=== PATIENT | female | born 1955 | race Caucasian/White ===

== ENCOUNTER 2019-03-02 14:22 | Inpatient (IN) | payer OTHER ==
[~2019-03-02] VITALS: Ht 175.3 cm; Wt 78.0 kg
[~2019-03-02 14:22] MED LIST: FAMO-79 PO; HYDR25TA6 PO; MELO7.5T31 PO; PRED10TA14 PO; PRED20TA PO; PRED5TAB PO; SUCR1TAB33 PO
[2019-03-02] MEDS ORDERED: morphine SULFATE 10 MG/ML, 1ML IVPush PRN (17:30)
[2019-03-02] MEDS ORDERED: ONDANSETRON 2MG/ML, 2ML IVPush PRN (17:30)
[2019-03-02] MEDS ORDERED: TPN PER PHARMACY MC PRN (17:30)
[2019-03-02] MEDS ORDERED: ACETAMINOPHEN 325 MG TABLET PO PRN (17:30)
[2019-03-02 18:12] LABS: MEAN CORPUSCULAR HEMOGLOBIN 29.5 pg (27.0-34.8); MEAN CORPUSCULAR HGB CONC 33.4 g/dL (32.4-35.8); MEAN CORPUSCULAR VOLUME 88.5 fL (80-100); MEAN PLATELET VOLUME 9.5 fL (7.4-10.4); PLATELET COUNT 453 x10^3/uL (130-400); RED BLOOD COUNT 4.26 x10^6/uL (3.82-5.3); RED CELL DISTRIBUTION WIDTH 14.5 % (9.6-15.2)
[2019-03-02 18:14] LABS: MD YES
[2019-03-02 18:24] LABS: ALBUMIN 2.2 g/dL (3.4-5.0); ANION GAP 10 mmol/L (5-15); CALCIUM 9.3 mg/dL (8.5-10.1); CHLORIDE 88 mmol/L (98-107)
[2019-03-02 18:28] LABS: ALANINE AMINOTRANSFERASE 445 U/L (12-78); ALKALINE PHOSPHATASE 464 U/L (45-117); BILIRUBIN,TOTAL 5.6 mg/dL (0.2-1.0); CREATININE 1.53 mg/dL (0.55-1.02); TOTAL PROTEIN 6.8 g/dL (6.4-8.2)
[2019-03-02] MEDS: LACTATED RINGERS 1,000 ML IV SCH (18:48)
[2019-03-02 18:57] LABS: BAND#(MANUAL) 0.19 x10^3/uL; BANDS%(MANUAL) 1 % (0-7); LYMPHS% (MANUAL) 7 % (22-44); MONOS#(MANUAL) 1.11 x10^3/uL (0.3-2.7); MONOS% (MANUAL) 6 % (2-9); SEG#(MANUAL) 15.91 x10^3/uL (1.8-6.8); SEGS% (MANUAL) 86 % (42-75)
[2019-03-02 18:58] LABS: <PLATELET ESTIMATE> INCREASED; <RBC MORPHOLOGY> NORMAL
[2019-03-02 18:59] LABS: <PLT MORPHOLOGY> NORMAL PLT MORPH
[2019-03-02 20:02] VITALS: BP 118/84
[2019-03-02 22:24] LABS: MICROSCOPIC INDICATED
[2019-03-02 22:25] LABS: CULTURE INDICATED? YES
[2019-03-03] MEDS: CEFTRIAXONE PMX 1GM/50ML 50 ML IV SCH ×2 (00:11→23:34)
[2019-03-03 00:56] VITALS: BP 128/86
[2019-03-03] MEDS: LACTATED RINGERS 1,000 ML IV SCH (02:16)
[2019-03-03 04:42] LABS: ALANINE AMINOTRANSFERASE 368 U/L (12-78); ANION GAP 8 mmol/L (5-15); CALCIUM 9.3 mg/dL (8.5-10.1); CHLORIDE 91 mmol/L (98-107); CREATININE 1.45 mg/dL (0.55-1.02)
[2019-03-03 04:49] LABS: ALKALINE PHOSPHATASE 404 U/L (45-117); BILIRUBIN,TOTAL 4.7 mg/dL (0.2-1.0); PREALBUMIN 12.1 mg/dL (20.0-40.0); TOTAL PROTEIN 6.1 g/dL (6.4-8.2); TRIGLYCERIDES 177 mg/dL (50-200)
[2019-03-03] MEDS ORDERED: SODIUM CHLORIDE 0.9% 1,000 ML IV SCH ×2 (06:30→13:30)
[2019-03-03] MEDS: PANTOPRAZOLE 40 MG IV IVPush SCH (08:14)
[2019-03-03 08:55] VITALS: BP 125/71
[2019-03-03] MEDS ORDERED: PLEASE ENTER HEIGHT MC SCH (10:00)
[2019-03-03 10:26] VITALS: BP 130/90
[2019-03-03] MEDS ORDERED: NS + 40MEQ KCL 1,000 ML IV SCH (13:30)
[2019-03-03] MEDS: FILTER, DISP 1.2 MICRON FOR TPN/PVN IV PRN (16:41)
[2019-03-03] MEDS ORDERED: FAT EMUL IV SCH ×2 (17:00)
[2019-03-03] MEDS ORDERED: DEXTROSE 10% 500 ML IV PRN (17:00)
[2019-03-03] MEDS ORDERED: DEXTROSE 50%, 50ML SYRINGE IVPush PRN (17:00)
[2019-03-03] MEDS ORDERED: DEXTROSE 70% IV SCH ×2 (17:00)
[2019-03-03] MEDS ORDERED: [UNRECOGNIZED DRUG - OTHER] IV SCH (17:00)
[2019-03-03] MEDS ORDERED: [UNRECOGNIZED DRUG - OTHER] IV SCH (17:00)
[2019-03-03] MEDS ORDERED: AMINO ACID 10% IV SCH ×2 (17:00)
[2019-03-03] MEDS ORDERED: SMOF TPN IV SCH ×2 (17:00)
[2019-03-03 17:21] VITALS: BP 128/86
[2019-03-03 19:37] VITALS: BP 130/81
[2019-03-03] MEDS: SODIUM CHLORIDE 0.9% 1,000 ML IV SCH (19:55)
[2019-03-03] MEDS: INSULIN REGULAR MEDIUM DOSE Q6H X 48HRS SQ-INSULIN SCH (23:58)
[2019-03-04] VITALS: BP 124/86
[2019-03-04] MEDS: INSULIN REGULAR MEDIUM DOSE Q6H X 48HRS SQ-INSULIN SCH ×4 (05:37→23:24)
[2019-03-04 05:58] LABS: BASOPHILS # (AUTO) 0.03 x10^3/uL (0-0.1); BASOPHILS % (AUTO) 0 % (0-1); EOSINOPHILS # (AUTO) 0.26 x10^3/uL (0-0.4); EOSINOPHILS % (AUTO) 2 % (1-7); LYMPHOCYTES # (AUTO) 0.93 x10^3/uL (1-3.4); LYMPHOCYTES % (AUTO) 7 % (22-44); MD NO; MEAN CORPUSCULAR HEMOGLOBIN 29.1 pg (27.0-34.8); MEAN CORPUSCULAR HGB CONC 32.4 g/dL (32.4-35.8); MEAN CORPUSCULAR VOLUME 89.9 fL (80-100); MEAN PLATELET VOLUME 9.9 fL (7.4-10.4); MONOCYTES # (AUTO) 0.86 x10^3/uL (0.2-0.8); MONOCYTES % (AUTO) 6 % (2-9); NEUTROPHILS # (AUTO) 11.94 x10^3/uL (1.8-6.8); NEUTROPHILS % (AUTO) 85 % (42-75); PLATELET COUNT 342 x10^3/uL (130-400); RED CELL DISTRIBUTION WIDTH 14.6 % (9.6-15.2)
[2019-03-04 06:05] LABS: ALBUMIN 1.9 g/dL (3.4-5.0); ANION GAP 8 mmol/L (5-15); CALCIUM 8.7 mg/dL (8.5-10.1); CHLORIDE 96 mmol/L (98-107)
[2019-03-04 06:09] LABS: ALANINE AMINOTRANSFERASE 288 U/L (12-78); ALKALINE PHOSPHATASE 319 U/L (45-117); BILIRUBIN,TOTAL 3.6 mg/dL (0.2-1.0); CREATININE 1.48 mg/dL (0.55-1.02); TOTAL PROTEIN 5.9 g/dL (6.4-8.2)
[2019-03-04 07:21] VITALS: BP 118/82
[2019-03-04] MEDS: PANTOPRAZOLE 40 MG IV IVPush SCH (09:28)
[2019-03-04] MEDS ORDERED: FENTANYL PF 100 MCG/2ML ONE (12:54)
[2019-03-04] MEDS ORDERED: MIDAZOLAM 1 MG/ML, 2ML ONE (12:54)
[2019-03-04] MEDS ORDERED: LIDOCAINE GEL 2%, 5ML ONE (12:56)
[2019-03-04] MEDS ORDERED: hydrALAzine 20 MG/ML, 1ML IV PRN (13:00)
[2019-03-04] MEDS ORDERED: MEPERIDINE/PF 25MG/ML,1ML IVPush PRN (13:00)
[2019-03-04] MEDS ORDERED: PROMETHAZINE 25 MG/ML, 1ML IV PRN (13:00)
[2019-03-04] MEDS ORDERED: OXYcodone 5 MG/5 ML ORAL.SOL UDC PO PRN (13:00)
[2019-03-04] MEDS ORDERED: MIDAZOLAM 1 MG/ML, 2ML IV PRN (13:00)
[2019-03-04] MEDS ORDERED: FENTANYL PF 100 MCG/2ML IV PRN (13:00)
[2019-03-04] MEDS ORDERED: ALBUTEROL/IPRATROPIUM 2.5MG/0.5MG, 3 ML NPPB PRN (13:00)
[2019-03-04] MEDS ORDERED: METOPROLOL 1 MG/ML, 5ML IV PRN (13:00)
[2019-03-04] MEDS ORDERED: SUCCINYLCHOLINE 20 MG/ML, 10ML ONE (13:22)
[2019-03-04] MEDS ORDERED: PHENYLEPHRINE 10 MG/ML ONE (13:22)
[2019-03-04] MEDS ORDERED: ROCURONIUM 10 MG/ML,10ML ONE (13:22)
[2019-03-04] MEDS ORDERED: ONDANSETRON 2MG/ML, 2ML ONE (13:52)
[2019-03-04] MEDS ORDERED: DEXAMETHASONE 4 MG/ML, 1ML ONE (13:52)
[2019-03-04] MEDS ORDERED: PROPOFOL 10 MG/ML, 20ML ONE (13:52)
[2019-03-04] MEDS ORDERED: VANCOMYCIN PER PHARMACY MC PRN (15:00)
[2019-03-04] MEDS ORDERED: PHARMACOKINETIC MONITORING MC PRN (15:30)
[2019-03-04] MEDS ORDERED: PHARMACOKINETIC CONSULTATION MC ONE ×2 (15:30)
[2019-03-04] MEDS: VANCOMYCIN 1,300 MG in SODIUM CHLORIDE 0.9% 250 ML IV SCH (16:32)
[2019-03-04] MEDS ORDERED: [UNRECOGNIZED DRUG - OTHER] IV SCH (17:00)
[2019-03-04] MEDS ORDERED: FAT EMUL IV SCH ×2 (17:00)
[2019-03-04] MEDS ORDERED: SMOF TPN IV SCH ×2 (17:00)
[2019-03-04] MEDS ORDERED: AMINO ACID 10% IV SCH ×2 (17:00)
[2019-03-04] MEDS ORDERED: [UNRECOGNIZED DRUG - OTHER] IV SCH (17:00)
[2019-03-04] MEDS ORDERED: DEXTROSE 70% IV SCH ×2 (17:00)
[2019-03-04 17:01] VITALS: BP 117/84
[2019-03-04] MEDS: FILTER, DISP 1.2 MICRON FOR TPN/PVN IV PRN (17:41)
[2019-03-04 19:44] VITALS: BP 131/87
[2019-03-04] MEDS: CEFTRIAXONE PMX 1GM/50ML 50 ML IV SCH (23:24)
[2019-03-05 03:09] VITALS: BP 124/82
[2019-03-05 04:35] LABS: INTERNATIONAL NORMALIZED RATIO 1.01 (0.93-1.1); PROTHROMBIN TIME 10.6 Seconds (9.6-11.5)
[2019-03-05 04:40] LABS: ALBUMIN 1.9 g/dL (3.4-5.0); ANION GAP 6 mmol/L (5-15); CALCIUM 8.6 mg/dL (8.5-10.1); CHLORIDE 106 mmol/L (98-107)
[2019-03-05 04:44] LABS: ALANINE AMINOTRANSFERASE 305 U/L (12-78); ALKALINE PHOSPHATASE 302 U/L (45-117); BILIRUBIN,TOTAL 3.3 mg/dL (0.2-1.0); TOTAL PROTEIN 5.7 g/dL (6.4-8.2)
[2019-03-05] MEDS: INSULIN REGULAR MEDIUM DOSE Q6H X 48HRS SQ-INSULIN SCH ×3 (06:23→17:00)
[2019-03-05 07:17] VITALS: BP 125/81
[2019-03-05] MEDS: PANTOPRAZOLE 40 MG IV IVPush SCH (08:41)
[2019-03-05] MEDS: SODIUM CHLORIDE 0.9% 1,000 ML IV SCH (11:22)
[2019-03-05] MEDS ORDERED: EPHEDRINE 50 MG/ML, 1ML ONE (11:47)
[2019-03-05 13:18] VITALS: BP 119/73
[2019-03-05] MEDS ORDERED: MIDAZOLAM 1 MG/ML, 2ML ONE (15:38)
[2019-03-05] MEDS ORDERED: FENTANYL PF 100 MCG/2ML ONE ×2 (15:38→15:57)
[2019-03-05] MEDS ORDERED: KETOROLAC 30 MG/1 ML ONE (15:44)
[2019-03-05] MEDS ORDERED: NEOSTIGMINE 1 MG/ML, 10ML ONE (15:44)
[2019-03-05] MEDS ORDERED: CEFOTETAN 2 GM ONE (15:44)
[2019-03-05] MEDS ORDERED: GLYCOPYRROLATE 0.2MG/1ML, 5ML ONE (15:44)
[2019-03-05] MEDS ORDERED: ONDANSETRON 2MG/ML, 2ML ONE (15:58)
[2019-03-05] MEDS ORDERED: SUCCINYLCHOLINE 20 MG/ML, 10ML ONE (16:21)
[2019-03-05] MEDS ORDERED: LIDOCAINE-MPF 2% ,5ML ONE (16:21)
[2019-03-05] MEDS ORDERED: PROPOFOL 10 MG/ML, 20ML ONE (16:21)
[2019-03-05] MEDS ORDERED: DEXAMETHASONE 4 MG/ML, 1ML ONE ×2 (16:23)
[2019-03-05] MEDS ORDERED: CEFAZOLIN 1,000 MG ONE (16:24)
[2019-03-05] MEDS ORDERED: SODIUM CHLORIDE 0.9% PF 10ML ONE (16:24)
[2019-03-05] MEDS ORDERED: HYDROcodone/APAP 7.5-325MG/15ML UDC PO PRN (16:30)
[2019-03-05] MEDS ORDERED: ONDANSETRON 2MG/ML, 2ML IV PRN (16:30)
[2019-03-05] MEDS ORDERED: hydrALAzine 20 MG/ML, 1ML IV PRN (16:30)
[2019-03-05] MEDS ORDERED: MEPERIDINE/PF 25MG/ML,1ML IVPush PRN (16:30)
[2019-03-05] MEDS ORDERED: LABETALOL 5MG/ML, 20ML IV PRN (16:30)
[2019-03-05] MEDS ORDERED: PROMETHAZINE 25 MG/ML, 1ML IV PRN (16:30)
[2019-03-05] MEDS ORDERED: EPHEDRINE 50 MG/ML, 1ML IVPush PRN (16:30)
[2019-03-05] MEDS ORDERED: FENTANYL PF 100 MCG/2ML IV PRN (16:30)
[2019-03-05] MEDS ORDERED: FAT EMUL IV SCH (17:00)
[2019-03-05] MEDS ORDERED: SMOF TPN IV SCH (17:00)
[2019-03-05] MEDS ORDERED: DEXTROSE 70% IV SCH (17:00)
[2019-03-05] MEDS ORDERED: [UNRECOGNIZED DRUG - OTHER] IV SCH (17:00)
[2019-03-05] MEDS ORDERED: AMINO ACID 10% IV SCH (17:00)
[2019-03-05] MEDS ORDERED: HYDROmorphone 2 MG/ML, 1ML ONE (17:22)
[2019-03-05] MEDS: HYDROmorphone 2 MG/ML, 1ML IVPush PRN ×5 (17:25→21:04)
[2019-03-05] MEDS: FILTER, DISP 1.2 MICRON FOR TPN/PVN IV PRN (18:41)
[2019-03-05 19:18] VITALS: BP 125/88
[2019-03-05] MEDS ORDERED: POTASSIUM CHLORIDE 20 MEQ in D5%-0.45% NACL 1,000 ML IV SCH (20:30)
[2019-03-05] MEDS: CEFOTETAN PMX 1GM/50ML 50 ML IVPB SCH (22:33)
[2019-03-05] MEDS: D5%-0.45% NACL 1,000 ML IV SCH (22:34)
[2019-03-05] MEDS: VANCOMYCIN 1,300 MG in SODIUM CHLORIDE 0.9% 250 ML IV SCH (23:08)
[2019-03-06] MEDS ORDERED: HYDROmorphone 1 MG/ML, 1ML VIAL ONE ×2 (01:08→04:56)
[2019-03-06] MEDS: HYDROmorphone 2 MG/ML, 1ML IVPush PRN ×7 (01:12→23:22)
[2019-03-06] MEDS: CEFTRIAXONE PMX 1GM/50ML 50 ML IV SCH (01:19)
[2019-03-06 02:37] VITALS: BP 122/81
[2019-03-06 03:10] LABS: BASOPHILS # (AUTO) 0.01 x10^3/uL (0-0.1); BASOPHILS % (AUTO) 0 % (0-1); EOSINOPHILS # (AUTO) 0.01 x10^3/uL (0-0.4); EOSINOPHILS % (AUTO) 0 % (1-7); LYMPHOCYTES # (AUTO) 0.63 x10^3/uL (1-3.4); LYMPHOCYTES % (AUTO) 4 % (22-44); MD NO; MEAN CORPUSCULAR HEMOGLOBIN 28.7 pg (27.0-34.8); MEAN CORPUSCULAR VOLUME 89.7 fL (80-100); MEAN PLATELET VOLUME 9.6 fL (7.4-10.4); MONOCYTES # (AUTO) 0.74 x10^3/uL (0.2-0.8); MONOCYTES % (AUTO) 5 % (2-9); NEUTROPHILS # (AUTO) 13.99 x10^3/uL (1.8-6.8); NEUTROPHILS % (AUTO) 91 % (42-75); PLATELET COUNT 326 x10^3/uL (130-400); RED BLOOD COUNT 3.65 x10^6/uL (3.82-5.3); RED CELL DISTRIBUTION WIDTH 15.1 % (9.6-15.2)
[2019-03-06 03:23] LABS: ALANINE AMINOTRANSFERASE 346 U/L (12-78); ALBUMIN 1.8 g/dL (3.4-5.0); ANION GAP 5 mmol/L (5-15); CALCIUM 8.5 mg/dL (8.5-10.1); CHLORIDE 109 mmol/L (98-107); CREATININE 1.63 mg/dL (0.55-1.02)
[2019-03-06 03:26] LABS: ALKALINE PHOSPHATASE 342 U/L (45-117); BILIRUBIN,TOTAL 3.2 mg/dL (0.2-1.0); TOTAL PROTEIN 5.9 g/dL (6.4-8.2)
[2019-03-06] MEDS: PANTOPRAZOLE 40 MG IV IVPush SCH (07:42)
[2019-03-06] MEDS: ENOXAPARIN 40 MG/0.4 ML SQ SCH (08:00)
[2019-03-06 08:17] VITALS: BP 149/97
[2019-03-06] MEDS ORDERED: FENTANYL PF 100 MCG/2ML ONE (09:00)
[2019-03-06] MEDS ORDERED: FLUMAZENIL 0.1 MG/1 ML, 5ML ONE (09:00)
[2019-03-06] MEDS ORDERED: MIDAZOLAM 1 MG/ML, 5ML ONE (09:00)
[2019-03-06] MEDS: INSULIN REGULAR MEDIUM DOSE QDAY SQ-INSULIN SCH (09:00)
[2019-03-06] MEDS ORDERED: NALOXONE 1 MG/ML, 2ML ONE (09:00)
[2019-03-06] MEDS ORDERED: LIDOCAINE 1%, 10ML ONE (09:27)
[2019-03-06] MEDS ORDERED: MEPERIDINE/PF 50 MG/ML ONE (09:28)
[2019-03-06] MEDS ORDERED: DIPHENHYDRAMINE 50 MG/ML, 1ML ONE (09:40)
[2019-03-06 12:12] VITALS: BP 133/89
[2019-03-06] MEDS: CEFOTETAN PMX 1GM/50ML 50 ML IVPB SCH (12:46)
[2019-03-06] MEDS: VANCOMYCIN 1,300 MG in SODIUM CHLORIDE 0.9% 250 ML IV SCH (15:16)
[2019-03-06] MEDS ORDERED: AMINO ACID 10% IV SCH (17:00)
[2019-03-06] MEDS ORDERED: FAT EMUL IV SCH (17:00)
[2019-03-06] MEDS ORDERED: DEXTROSE 70% IV SCH (17:00)
[2019-03-06] MEDS ORDERED: [UNRECOGNIZED DRUG - OTHER] IV SCH (17:00)
[2019-03-06] MEDS ORDERED: SMOF TPN IV SCH (17:00)
[2019-03-06] MEDS: FILTER, DISP 1.2 MICRON FOR TPN/PVN IV PRN (17:52)
[2019-03-06 19:39] VITALS: BP 131/88
[2019-03-07] MEDS: CEFTRIAXONE PMX 1GM/50ML 50 ML IV SCH (01:18)
[2019-03-07 01:49] VITALS: BP 128/85
[2019-03-07] MEDS: HYDROmorphone 2 MG/ML, 1ML IVPush PRN ×4 (05:37→20:39)
[2019-03-07 06:01] LABS: ANION GAP 6 mmol/L (5-15); CALCIUM 8.4 mg/dL (8.5-10.1); CHLORIDE 106 mmol/L (98-107); CREATININE 1.36 mg/dL (0.55-1.02)
[2019-03-07 06:59] VITALS: BP 138/86
[2019-03-07] MEDS: PANTOPRAZOLE 40 MG IV IVPush SCH (08:11)
[2019-03-07] MEDS: ENOXAPARIN 40 MG/0.4 ML SQ SCH (08:11)
[2019-03-07 08:45] LABS: ALBUMIN 1.6 g/dL (3.4-5.0); ANION GAP 7 mmol/L (5-15); CALCIUM 8.4 mg/dL (8.5-10.1); CHLORIDE 107 mmol/L (98-107)
[2019-03-07] MEDS: INSULIN REGULAR MEDIUM DOSE QDAY SQ-INSULIN SCH (09:06)
[2019-03-07 09:10] LABS: % IRON SATURATION 13 % (20-55); ALANINE AMINOTRANSFERASE 326 U/L (12-78); ALKALINE PHOSPHATASE 499 U/L (45-117); BILIRUBIN, DIRECT 3.5 mg/dL (0.1-0.2); BILIRUBIN,INDIRECT 0.8 mg/dL (0.0-2.0); BILIRUBIN,TOTAL 4.3 mg/dL (0.2-1.0); CREATININE 1.38 mg/dL (0.55-1.02); IRON LEVEL 21 mcg/dL (50-170); TOTAL IRON BINDING CAPACITY 161 mcg/dL (250-450); TOTAL PROTEIN 5.5 g/dL (6.4-8.2)
[2019-03-07 12:25] VITALS: BP 130/84
[2019-03-07] MEDS: SMOF TPN IV SCH (16:52)
[2019-03-07] MEDS: [UNRECOGNIZED DRUG - OTHER] IV SCH (16:52)
[2019-03-07] MEDS: AMINO ACID 10% IV SCH (16:52)
[2019-03-07] MEDS: FILTER, DISP 1.2 MICRON FOR TPN/PVN IV PRN (16:52)
[2019-03-07] MEDS: FAT EMUL IV SCH (16:52)
[2019-03-07] MEDS: DEXTROSE 70% IV SCH (16:52)
[2019-03-07 20:33] VITALS: BP 129/91
[2019-03-08] MEDS: HYDROmorphone 2 MG/ML, 1ML IVPush PRN ×4 (01:43→20:34)
[2019-03-08 02:22] VITALS: BP 131/91
[2019-03-08] MEDS: D5%-0.45% NACL 1,000 ML IV SCH (04:26)
[2019-03-08 04:51] LABS: ALANINE AMINOTRANSFERASE 249 U/L (12-78); ALBUMIN 1.6 g/dL (3.4-5.0); ANION GAP 6 mmol/L (5-15); CALCIUM 8.2 mg/dL (8.5-10.1); CHLORIDE 104 mmol/L (98-107); CREATININE 1.16 mg/dL (0.55-1.02); MEAN CORPUSCULAR HEMOGLOBIN 29.1 pg (27.0-34.8); MEAN CORPUSCULAR HGB CONC 32.7 g/dL (32.4-35.8); MEAN PLATELET VOLUME 9.9 fL (7.4-10.4); PLATELET COUNT 285 x10^3/uL (130-400); RED BLOOD COUNT 3.36 x10^6/uL (3.82-5.3); RED CELL DISTRIBUTION WIDTH 15.4 % (9.6-15.2)
[2019-03-08 04:53] LABS: ALKALINE PHOSPHATASE 562 U/L (45-117); BILIRUBIN,TOTAL 4.7 mg/dL (0.2-1.0); TOTAL PROTEIN 5.6 g/dL (6.4-8.2)
[2019-03-08 05:23] LABS: MD YES
[2019-03-08 05:27] LABS: BAND#(MANUAL) 0.12 x10^3/uL; BANDS%(MANUAL) 1 % (0-7); EOS#(MANUAL) 0.58 x10^3/uL (0.0-0.4); EOS% (MANUAL) 5 % (1-7); LYMPH#(MANUAL) 1.28 x10^3/uL (1-3.4); LYMPHS% (MANUAL) 11 % (22-44); MONOS#(MANUAL) 0.58 x10^3/uL (0.3-2.7); MONOS% (MANUAL) 5 % (2-9); SEG#(MANUAL) 9.05 x10^3/uL (1.8-6.8); SEGS% (MANUAL) 78 % (42-75)
[2019-03-08 05:28] LABS: <PLATELET ESTIMATE> ADEQUATE; <PLT MORPHOLOGY> NORMAL PLT MORPH; <RBC MORPHOLOGY> NORMAL
[2019-03-08 07:06] VITALS: BP 132/87
[2019-03-08] MEDS: INSULIN REGULAR MEDIUM DOSE QDAY SQ-INSULIN SCH (07:36)
[2019-03-08] MEDS: ENOXAPARIN 40 MG/0.4 ML SQ SCH (07:48)
[2019-03-08] MEDS: PANTOPRAZOLE 40 MG IV IVPush SCH (07:48)
[2019-03-08] MEDS: ONDANSETRON ODT 4 MG PO PRN (11:21)
[2019-03-08 14:38] VITALS: BP 147/90
[2019-03-08] MEDS: AMINO ACID 10% IV SCH (17:00)
[2019-03-08] MEDS: [UNRECOGNIZED DRUG - OTHER] IV SCH (17:00)
[2019-03-08] MEDS: SMOF TPN IV SCH (17:00)
[2019-03-08] MEDS: DEXTROSE 70% IV SCH (17:00)
[2019-03-08] MEDS: FAT EMUL IV SCH (17:00)
[2019-03-08 20:40] VITALS: BP 136/93
[2019-03-09 03:30] VITALS: BP 123/89
[2019-03-09] MEDS: HYDROmorphone 2 MG/ML, 1ML IVPush PRN ×2 (04:04→23:43)
[2019-03-09] MEDS: PANTOPROZOLE 40MG TABLET PO SCH (06:07)
[2019-03-09] MEDS: morphine SULFATE 10 MG/ML, 1ML IV PRN ×3 (06:39→20:36)
[2019-03-09 06:42] LABS: BASOPHILS # (AUTO) 0.06 x10^3/uL (0-0.1); BASOPHILS % (AUTO) 1 % (0-1); EOSINOPHILS % (AUTO) 3 % (1-7); LYMPHOCYTES # (AUTO) 1.11 x10^3/uL (1-3.4); LYMPHOCYTES % (AUTO) 9 % (22-44); MD NO; MEAN CORPUSCULAR HEMOGLOBIN 28.9 pg (27.0-34.8); MEAN CORPUSCULAR HGB CONC 32.8 g/dL (32.4-35.8); MEAN CORPUSCULAR VOLUME 88.2 fL (80-100); MEAN PLATELET VOLUME 9.8 fL (7.4-10.4); MONOCYTES # (AUTO) 1.04 x10^3/uL (0.2-0.8); MONOCYTES % (AUTO) 9 % (2-9); NEUTROPHILS # (AUTO) 9.73 x10^3/uL (1.8-6.8); NEUTROPHILS % (AUTO) 79 % (42-75); PLATELET COUNT 308 x10^3/uL (130-400); RED BLOOD COUNT 3.46 x10^6/uL (3.82-5.3); RED CELL DISTRIBUTION WIDTH 15.1 % (9.6-15.2)
[2019-03-09 06:54] LABS: ALANINE AMINOTRANSFERASE 221 U/L (12-78); ALBUMIN 1.6 g/dL (3.4-5.0); ANION GAP 6 mmol/L (5-15); CALCIUM 8.3 mg/dL (8.5-10.1); CHLORIDE 102 mmol/L (98-107); CREATININE 1.18 mg/dL (0.55-1.02)
[2019-03-09 06:57] LABS: ALKALINE PHOSPHATASE 673 U/L (45-117); BILIRUBIN,TOTAL 6.5 mg/dL (0.2-1.0); TOTAL PROTEIN 5.8 g/dL (6.4-8.2)
[2019-03-09 07:11] VITALS: BP 132/90
[2019-03-09] MEDS: ENOXAPARIN 40 MG/0.4 ML SQ SCH (07:45)
[2019-03-09 08:44] LABS: BILIRUBIN, DIRECT 5.4 mg/dL (0.1-0.2)
[2019-03-09 08:45] LABS: BILIRUBIN,INDIRECT 1.2 mg/dL (0.0-2.0); BILIRUBIN,TOTAL 6.6 mg/dL (0.2-1.0)
[2019-03-09] MEDS: ONDANSETRON ODT 4 MG PO PRN (11:37)
--- NOTE | 2019-03-09 13:14 | NUR ---
Vital 1.5 goal: 55 ml/hr Addendum: 03/09/19 at [address] Amended: Links added.
[2019-03-09 13:51] VITALS: BP 136/94
[2019-03-09] MEDS: ONDANSETRON 2MG/ML, 2ML IV PRN ×2 (14:46→20:35)
[2019-03-09] MEDS: FENTANYL 12 MCG PATCH TD SCH (17:42)
[2019-03-09 19:04] VITALS: BP 133/89
[2019-03-10 01:23] VITALS: BP 125/88
[2019-03-10] MEDS: HYDROmorphone 2 MG/ML, 1ML IVPush PRN (04:19)
[2019-03-10] MEDS: PANTOPROZOLE 40MG TABLET PO SCH (06:00)
[2019-03-10] MEDS: ONDANSETRON 2MG/ML, 2ML IV PRN (06:27)
[2019-03-10 06:30] LABS: BASOPHILS # (AUTO) 0.07 x10^3/uL (0-0.1); BASOPHILS % (AUTO) 1 % (0-1); EOSINOPHILS # (AUTO) 0.18 x10^3/uL (0-0.4); EOSINOPHILS % (AUTO) 1 % (1-7); LYMPHOCYTES # (AUTO) 1.19 x10^3/uL (1-3.4); LYMPHOCYTES % (AUTO) 9 % (22-44); MD NO; MEAN CORPUSCULAR HEMOGLOBIN 28.6 pg (27.0-34.8); MEAN CORPUSCULAR HGB CONC 32.9 g/dL (32.4-35.8); MEAN CORPUSCULAR VOLUME 86.9 fL (80-100); MEAN PLATELET VOLUME 9.6 fL (7.4-10.4); MONOCYTES # (AUTO) 1.38 x10^3/uL (0.2-0.8); MONOCYTES % (AUTO) 11 % (2-9); NEUTROPHILS # (AUTO) 10.26 x10^3/uL (1.8-6.8); NEUTROPHILS % (AUTO) 79 % (42-75); PLATELET COUNT 333 x10^3/uL (130-400); RED BLOOD COUNT 3.48 x10^6/uL (3.82-5.3); RED CELL DISTRIBUTION WIDTH 15.6 % (9.6-15.2)
[2019-03-10 06:41] LABS: ALBUMIN 1.7 g/dL (3.4-5.0); ANION GAP 6 mmol/L (5-15); CALCIUM 8.8 mg/dL (8.5-10.1); CHLORIDE 102 mmol/L (98-107)
[2019-03-10 06:44] LABS: ALANINE AMINOTRANSFERASE 214 U/L (12-78); ALKALINE PHOSPHATASE 727 U/L (45-117); BILIRUBIN, DIRECT 6.6 mg/dL (0.1-0.2); BILIRUBIN,TOTAL 8.1 mg/dL (0.2-1.0); CREATININE 1.35 mg/dL (0.55-1.02)
[2019-03-10 08:57] VITALS: BP 131/91
[2019-03-10] MEDS ORDERED: D5%-0.45% NACL 1,000 ML IV SCH (09:00)
[2019-03-10] MEDS: PANTOPRAZOLE 40 MG IV IVPush SCH (12:25)
[2019-03-10] MEDS: ENOXAPARIN 40 MG/0.4 ML SQ SCH (12:26)
[2019-03-10] MEDS: D5%-0.45% NACL 1,000 ML IV SCH (12:27)
[2019-03-10 14:18] VITALS: BP 119/87
[2019-03-10 19:16] VITALS: BP 117/81
[2019-03-10] MEDS ORDERED: MOVIPREP POWDER 1 PREP KIT PO ONE (20:00)
[2019-03-11 01:15] VITALS: BP 121/82
[2019-03-11] MEDS: D5%-0.45% NACL 1,000 ML IV SCH (05:30)
[2019-03-11 05:44] LABS: BASOPHILS # (AUTO) 0.09 x10^3/uL (0-0.1); BASOPHILS % (AUTO) 1 % (0-1); EOSINOPHILS # (AUTO) 0.27 x10^3/uL (0-0.4); EOSINOPHILS % (AUTO) 3 % (1-7); LYMPHOCYTES % (AUTO) 11 % (22-44); MD NO; MEAN CORPUSCULAR VOLUME 87.9 fL (80-100); MEAN PLATELET VOLUME 9.8 fL (7.4-10.4); MONOCYTES # (AUTO) 1.07 x10^3/uL (0.2-0.8); MONOCYTES % (AUTO) 10 % (2-9); NEUTROPHILS # (AUTO) 7.76 x10^3/uL (1.8-6.8); NEUTROPHILS % (AUTO) 75 % (42-75); PLATELET COUNT 347 x10^3/uL (130-400); RED BLOOD COUNT 3.27 x10^6/uL (3.82-5.3); RED CELL DISTRIBUTION WIDTH 15.7 % (9.6-15.2)
[2019-03-11 05:53] LABS: ALBUMIN 1.7 g/dL (3.4-5.0); ANION GAP 7 mmol/L (5-15); CHLORIDE 102 mmol/L (98-107)
[2019-03-11 05:57] LABS: ALANINE AMINOTRANSFERASE 178 U/L (12-78); ALKALINE PHOSPHATASE 862 U/L (45-117); BILIRUBIN, DIRECT 7.7 mg/dL (0.1-0.2); BILIRUBIN,TOTAL 9.3 mg/dL (0.2-1.0); CREATININE 1.47 mg/dL (0.55-1.02); TOTAL PROTEIN 5.9 g/dL (6.4-8.2)
[2019-03-11] MEDS ORDERED: MOVIPREP POWDER 1 PREP KIT PO ONE (06:30)
[2019-03-11 08:06] VITALS: BP 129/76
[2019-03-11] MEDS: ENOXAPARIN 40 MG/0.4 ML SQ SCH (10:31)
[2019-03-11] MEDS: PANTOPRAZOLE 40 MG IV IVPush SCH (10:36)
[2019-03-11] MEDS ORDERED: PANTOPRAZOLE 40 MG IV IVPush SCH (12:00)
[2019-03-11 14:10] VITALS: BP 126/90
[2019-03-11 19:00] VITALS: BP 124/84
[2019-03-12 01:10] VITALS: BP 126/86
[2019-03-12] MEDS: D5%-0.45% NACL 1,000 ML IV SCH (01:30)
[2019-03-12] MEDS: PANTOPRAZOLE 40 MG IV IVPush SCH (05:12)
[2019-03-12 05:34] LABS: CHLORIDE 102 mmol/L (98-107); MEAN CORPUSCULAR HEMOGLOBIN 28.8 pg (27.0-34.8); MEAN CORPUSCULAR HGB CONC 33.2 g/dL (32.4-35.8); MEAN CORPUSCULAR VOLUME 86.6 fL (80-100); MEAN PLATELET VOLUME 9.7 fL (7.4-10.4); PLATELET COUNT 359 x10^3/uL (130-400); RED BLOOD COUNT 3.14 x10^6/uL (3.82-5.3); RED CELL DISTRIBUTION WIDTH 15.6 % (9.6-15.2)
[2019-03-12 05:42] LABS: ALANINE AMINOTRANSFERASE 160 U/L (12-78); ALBUMIN 1.8 g/dL (3.4-5.0); ALKALINE PHOSPHATASE 838 U/L (45-117); ANION GAP 9 mmol/L (5-15); BILIRUBIN, DIRECT 8.1 mg/dL (0.1-0.2); BILIRUBIN,TOTAL 9.6 mg/dL (0.2-1.0); CALCIUM 8.7 mg/dL (8.5-10.1); CREATININE 1.52 mg/dL (0.55-1.02); TOTAL PROTEIN 5.9 g/dL (6.4-8.2)
[2019-03-12 06:07] LABS: MD YES
[2019-03-12 06:09] LABS: BAND#(MANUAL) 0.09 x10^3/uL; BANDS%(MANUAL) 1 % (0-7); BASOS#(MANUAL) 0.19 x10^3/uL (0-0.1); BASOS% (MANUAL) 2 % (0-1); EOS#(MANUAL) 0.19 x10^3/uL (0.0-0.4); EOS% (MANUAL) 2 % (1-7); LYMPH#(MANUAL) 0.47 x10^3/uL (1-3.4); LYMPHS% (MANUAL) 5 % (22-44); METAMYELOCYTES# (MANUAL) 0.09 x10^3/uL (0-0); METAMYELOCYTES% (MANUAL) 1 % (0-1); MONOS#(MANUAL) 1.21 x10^3/uL (0.3-2.7); MONOS% (MANUAL) 13 % (2-9); SEG#(MANUAL) 7.07 x10^3/uL (1.8-6.8); SEGS% (MANUAL) 76 % (42-75)
[2019-03-12 06:10] LABS: ANISOCYTOSIS 1+
[2019-03-12 06:11] LABS: <PLATELET ESTIMATE> ADEQUATE; <PLT MORPHOLOGY> NORMAL PLT MORPH; POLYCHROMASIA 1+
[2019-03-12 07:26] VITALS: BP 138/90
[2019-03-12] MEDS: ENOXAPARIN 40 MG/0.4 ML SQ SCH (08:19)
[2019-03-12] MEDS ORDERED: PROPOFOL 10 MG/ML, 50ML ONE (09:40)
[2019-03-12] MEDS: morphine SULFATE 10 MG/ML, 1ML IV PRN ×2 (11:42→22:13)
[2019-03-12] MEDS: ONDANSETRON 2MG/ML, 2ML IV PRN ×2 (12:28→22:07)
[2019-03-12 13:03] VITALS: BP 131/87
[2019-03-12] MEDS ORDERED: FENTANYL REMOVE PATCH NOTE XX SCH (17:00)
[2019-03-12] MEDS: FENTANYL 12 MCG PATCH TD SCH (17:03)
[2019-03-12 18:44] VITALS: BP 130/88
[2019-03-13 01:13] VITALS: BP 131/90
[2019-03-13 04:49] LABS: BASOPHILS # (AUTO) 0.01 x10^3/uL (0-0.1); BASOPHILS % (AUTO) 0 % (0-1); EOSINOPHILS # (AUTO) 0.19 x10^3/uL (0-0.4); EOSINOPHILS % (AUTO) 2 % (1-7); LYMPHOCYTES # (AUTO) 1.33 x10^3/uL (1-3.4); LYMPHOCYTES % (AUTO) 15 % (22-44); MD NO; MEAN CORPUSCULAR HEMOGLOBIN 29.5 pg (27.0-34.8); MEAN CORPUSCULAR HGB CONC 33.8 g/dL (32.4-35.8); MEAN CORPUSCULAR VOLUME 87.4 fL (80-100); MEAN PLATELET VOLUME 9.5 fL (7.4-10.4); MONOCYTES # (AUTO) 0.85 x10^3/uL (0.2-0.8); MONOCYTES % (AUTO) 9 % (2-9); NEUTROPHILS # (AUTO) 6.77 x10^3/uL (1.8-6.8); NEUTROPHILS % (AUTO) 74 % (42-75); PLATELET COUNT 365 x10^3/uL (130-400); RED BLOOD COUNT 3.06 x10^6/uL (3.82-5.3)
[2019-03-13 04:52] LABS: ALANINE AMINOTRANSFERASE 166 U/L (12-78); ALBUMIN 1.7 g/dL (3.4-5.0); ANION GAP 8 mmol/L (5-15); BILIRUBIN, DIRECT 9.1 mg/dL (0.1-0.2); CALCIUM 8.3 mg/dL (8.5-10.1); CHLORIDE 100 mmol/L (98-107); CREATININE 1.67 mg/dL (0.55-1.02)
[2019-03-13 04:55] LABS: ALKALINE PHOSPHATASE 937 U/L (45-117); BILIRUBIN,TOTAL 10.9 mg/dL (0.2-1.0); TOTAL PROTEIN 5.8 g/dL (6.4-8.2)
[2019-03-13] MEDS: PANTOPRAZOLE 40 MG IV IVPush SCH (06:05)
[2019-03-13] MEDS ORDERED: POTASSIUM CHLORIDE 20 MEQ in SODIUM CHLORIDE 0.9% 250 ML IV ONE (07:00)
[2019-03-13 07:47] VITALS: BP 126/82
[2019-03-13] MEDS: ENOXAPARIN 40 MG/0.4 ML SQ SCH (08:19)
[2019-03-13] MEDS: ONDANSETRON ODT 4 MG PO PRN ×2 (08:19→23:15)
[2019-03-13] MEDS ORDERED: POTASSIUM CHLORIDE 20 MEQ PACKET PO SCH (09:00)
[2019-03-13] MEDS ORDERED: FUROSEMIDE 20 MG TABLET PO SCH (09:00)
[2019-03-13] MEDS: HEPARIN 5,000 UNITS/ML, 1ML SQ SCH ×2 (10:59→20:46)
[2019-03-13 12:52] VITALS: BP 131/87
[2019-03-13 19:15] VITALS: BP 122/86
[2019-03-14 00:32] VITALS: BP 122/82
[2019-03-14 05:04] LABS: ALANINE AMINOTRANSFERASE 173 U/L (12-78); ALBUMIN 1.8 g/dL (3.4-5.0); ANION GAP 7 mmol/L (5-15); CALCIUM 8.4 mg/dL (8.5-10.1); CHLORIDE 97 mmol/L (98-107)
[2019-03-14 05:18] LABS: ALKALINE PHOSPHATASE 1073 U/L (45-117); BILIRUBIN,TOTAL 13.1 mg/dL (0.2-1.0); CREATININE 1.78 mg/dL (0.55-1.02); TOTAL PROTEIN 5.6 g/dL (6.4-8.2)
[2019-03-14 05:19] LABS: BILIRUBIN, DIRECT 10.7 mg/dL (0.1-0.2)
[2019-03-14 05:22] LABS: MEAN CORPUSCULAR HEMOGLOBIN 29.6 pg (27.0-34.8); MEAN CORPUSCULAR HGB CONC 33.6 g/dL (32.4-35.8); MEAN CORPUSCULAR VOLUME 88.1 fL (80-100); PLATELET COUNT 368 x10^3/uL (130-400); RED BLOOD COUNT 3.02 x10^6/uL (3.82-5.3); RED CELL DISTRIBUTION WIDTH 16.1 % (9.6-15.2)
[2019-03-14] MEDS: PANTOPRAZOLE 40 MG IV IVPush SCH (05:24)
[2019-03-14 05:41] LABS: MD YES
[2019-03-14 05:43] LABS: ANISOCYTOSIS 1+; BAND#(MANUAL) 0.11 x10^3/uL; BANDS%(MANUAL) 1 % (0-7); BASOS#(MANUAL) 0.11 x10^3/uL (0-0.1); BASOS% (MANUAL) 1 % (0-1); EOS#(MANUAL) 0.11 x10^3/uL (0.0-0.4); EOS% (MANUAL) 1 % (1-7); LYMPH#(MANUAL) 1.06 x10^3/uL (1-3.4); LYMPHS% (MANUAL) 10 % (22-44); METAMYELOCYTES# (MANUAL) 0.11 x10^3/uL (0-0); METAMYELOCYTES% (MANUAL) 1 % (0-1); MONOS#(MANUAL) 0.42 x10^3/uL (0.3-2.7); MONOS% (MANUAL) 4 % (2-9); POLYCHROMASIA 1+; SEG#(MANUAL) 8.69 x10^3/uL (1.8-6.8); SEGS% (MANUAL) 82 % (42-75)
[2019-03-14 05:44] LABS: <PLATELET ESTIMATE> ADEQUATE; <PLT MORPHOLOGY> NORMAL PLT MORPH
[2019-03-14] MEDS ORDERED: POTASSIUM CHLORIDE 20 MEQ PACKET PO ONE (07:00)
[2019-03-14 07:23] VITALS: BP 132/89
[2019-03-14] MEDS ORDERED: POTASSIUM CHLORIDE PO (09:40)
[2019-03-14] MEDS ORDERED: ONDA4TAB13 PO (09:40)
[2019-03-14] MEDS ORDERED: FENT1PAT74 TD (09:40)
[2019-03-14] MEDS: HEPARIN 5,000 UNITS/ML, 1ML SQ SCH (11:00)
[2019-03-15] MEDS ORDERED: POTASSIUM CHLORIDE 10% 20 MEQ/15 ML UDC PO SCH (09:00)
== END 2019-03-14 15:10 | disposition hospice, home (50) | DRG 420 ==
LOC: 4NW 16:06 → DCLOUNGE 03-14 15:03
PROVIDERS: ADMIT Internal Medicine; ATTEND Hospitalist
PROC: 0D968ZZ Drainage of Stomach, Via Natural or Artificial Opening Endoscopic (ICD-10-PCS; 2019-03-02)
PROC: 0D160ZA Bypass Stomach to Jejunum, Open Approach (ICD-10-PCS; 2019-03-02)
PROC: 0DHA3UZ Insertion of Feeding Device into Jejunum, Percutaneous Approach (ICD-10-PCS; 2019-03-02)
PROC: 02HV33Z Insertion of Infusion Device into Superior Vena Cava, Percutaneous Approach (ICD-10-PCS; 2019-03-03)
PROC: B5181ZA Fluoroscopy of Superior Vena Cava using Low Osmolar Contrast, Guidance (ICD-10-PCS; 2019-03-03)
PROC: B548ZZA Ultrasonography of Superior Vena Cava, Guidance (ICD-10-PCS; 2019-03-03)
PROC: 0WJG3ZZ Inspection of Peritoneal Cavity, Percutaneous Approach (ICD-10-PCS; principal; 2019-03-06)
PROC: 0DBU0ZX Excision of Omentum, Open Approach, Diagnostic (ICD-10-PCS; 2019-03-06)
DX: C25.0 Malignant neoplasm of head of pancreas (principal); E43 Unspecified severe protein-calorie malnutrition; K83.1 Obstruction of bile duct; K31.1 Adult hypertrophic pyloric stenosis; K31.5 Obstruction of duodenum; N13.6 Pyonephrosis; N17.9 Acute kidney failure, unspecified; C78.6 Secondary malignant neoplasm of retroperitoneum and peritoneum; B95.2 Enterococcus as the cause of diseases classified elsewhere; B95.8 Unspecified staphylococcus as the cause of diseases classified elsewhere; D63.8 Anemia in other chronic diseases classified elsewhere; E87.6 Hypokalemia; K82.8 Other specified diseases of gallbladder; K59.00 Constipation, unspecified; R34 Anuria and oliguria; R94.5 Abnormal results of liver function studies; Z68.25 Body mass index [BMI] 25.0-25.9, adult; Z80.0 Family history of malignant neoplasm of digestive organs; Z90.710 Acquired absence of both cervix and uterus; Z82.49 Family history of ischemic heart disease and other diseases of the circulatory system
CPT/HCPCS: 36415; 74018; J3475; J3490; 36573; 47534; 74176; 74181; 76770; 80048; 80053; 81001; 82247; 82248; 82607; 82728; 82962; 83540; 83550; 83735; 84100; 84134; 84478; 85025; 85610; 86301; 87040; 87077; 87086; 87186; 88305; 88342; 99156; 99157; B4087; C1894; G0378; J0610; J0690; J0696; J1100; J1170; J1650; J1815; J1885; J2175; J2250; J2405; J2704; J2710; J3010; J3370; J3480; Q0162; C1751; C9113; J0330; J1200; J2270; J2310; J2370; J7030; J7050; J7120